=== PATIENT | female | born 1945 | race Caucasian/White ===

== ENCOUNTER 2024-05-24 09:38 | Outpatient (CLI) | payer MEDICARE | END 2024-05-24 09:39 | disposition home or self-care (01) | LOC: RAD 09:38 | PROVIDERS: ATTEND Family Medicine | DX: K21.9 Gastro-esophageal reflux disease without esophagitis (principal); R13.10 Dysphagia, unspecified; R63.39 Other feeding difficulties | CPT/HCPCS: 74230 ==